=== PATIENT | female | born 1980 | race Caucasian/White ===

== ENCOUNTER → 2023-09-06 | Emergency (ER) | payer OTHER, SELFPAY ==
[~2023-09-06] MED LIST: CEFTRIAXONE 1000 MG/VIAL ONE; HYDROMORPHONE HCL 1 MG/ML INJ ONE; KETOROLAC 30 MG/ML INJ ONE; LIDOCAINE 4% PATCH ONE; METHOCARBAMOL 1,000 MG/10 ML VIAL ONE; MORPHINE 4 MG/ML SYR ONE; NA CHLORIDE 0.9% 100 ML ONE; NA CHLORIDE 0.9% 50 ML ONE; ONDANSETRON 4 MG/2 ML VIAL ONE; dexAMETHasone 10 MG/ML VIAL ONE
[2023-09-06 17:01] LABS: Specific Gravity 1.014 (1.005-1.030)
[2023-09-06 17:22] LABS: Specific Gravity 1.014 (1.005-1.030); Urine Bacteria None Seen /HPF (<20); Urine Bilirubin NEGATIVE (Negative); Urine Blood Negative (Negative); Urine Clarity Turbid (Clear); Urine Color Light-Yellow (Yellow); Urine Glucose NEGATIVE (Negative); Urine Mucus Slight /HPF (None Seen); Urine Protein NEGATIVE (Negative); Urine RBC <5 /HPF (None Seen); Urine Urobilinogen Normal (Normal)
--- NOTE | 2023-09-06 18:12 | RAD REPORT ---
EXAM DESCRIPTION: CT - Spine Lumbar Wo Con - 09/06/2023 5:33 pm CLINICAL HISTORY: PAIN COMPARISON: No comparisons TECHNIQUE: Axial noncontrast CT imaging of the lumbar spine was performed with coronal and sagittal re-formatted images. All CT scans are performed using dose optimization technique as appropriate and may include automated exposure control or mA/KV adjustment according to patient size. FINDINGS: No acute lumbar spine fracture seen. No aggressive marrow pattern or malalignment. Paraspinal tissues are normal in thickness. No paraspinal abscess or hematoma seen. Intervertebral disc disease assessment is inherently limited by CT. Within these limitations, no high -grade canal stenosis suspected. Asymmetric disc herniation along the left central/subarticular dianna on at L5-S1, with corresponding asymmetric disc height loss and endplate remodeling. Findings contrib carmelo to asymmetric narrowing of the left lateral recess, as well as at least moderate left neural fora deon narrowing. Mild bilateral neural foraminal narrowing at L4-5 secondary to endplate remodeling a nd diffuse disc bulge worse on the right. IMPRESSION: No acute osseous abnormality. Multilevel degenerative changes of the lumbar spine as above, most pronounced at L5-S1. Please correl ate clinically and consider additional evaluation by dedicated lumbar spine MRI on an outpatient basi s if there is concern for impingement of the neural structures.
--- NOTE | 2023-09-06 18:21 | RAD REPORT ---
EXAM DESCRIPTION: CT - Pelvis Wo Cont - 09/06/2023 5:34 pm CLINICAL HISTORY: PAIN COMPARISON: No comparisons TECHNIQUE: Thin cut axial CT imaging of the pelvis was performed without IV contrast. Multiplanar re formats were generated and reviewed. All CT scans are performed using dose optimization technique as appropriate and may include automated exposure control or mA/KV adjustment according to patient size. FINDINGS: No suspicious findings in the lung bases. No dilated bowel loops or bowel wall thickening. No free air, free fluid or inflammatory stranding. N o hernia, mass or bulky lymphadenopathy. The urinary bladder is without significant finding. No suspicious bony findings. Marginally calcified soft tissue lesions along the gluteal regions bilaterally, could relate to injec tion granuloma is or sequelae of prior trauma. Diastasis recti and small fat containing umbilical hernia. IMPRESSION: No suspicious bony finding started pelvis. Incidental findings as above.
--- NOTE | 2023-09-06 19:11 | EDPHYS ---
Physician Documentation [facility] Name: Porsha Hunt Age: 43 yrs Sex: Female : 1980 Arrival Date: 09/06/2023 Time: 13:42 Bed DX1 Private MD: ED Physician Josse Us HPI: 09/06 14:58 This 43 yrs old Female presents to ER via Wheelchair with complaints of Low Back Pain, cp Hip Pain - right, Leg Pain - right. 14:58 The patient presents with pain worsening of chronic low back pain. cp 14:58 The pain radiates to the right hip and right leg. The problem was sustained reports cp long drive yesterday that she believes made low back pain worse today. Associated signs and symptoms: Pertinent negatives: abdominal pain, constipation, fever, incontinence, numbness, urinary retention, weakness. Severity of symptoms: in the emergency department the symptoms are unchanged, despite home interventions. Patient reports surgical history of lumbar surgery. 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 - Social history:: Smoking status: Patient denies any tobacco usage or history of. ROS: 15:05 Constitutional: Negative for body aches, chills, fever, poor PO intake, cp 15:05 Cardiovascular: Negative for chest pain, cp 15:05 Respiratory: Negative for cough, shortness of breath, wheezing, 15:05 Abdomen/GI: Negative for abdominal pain, vomiting, diarrhea, constipation, bowel incontinence, 15:05 Back: Positive for decreased range of motion, pain at rest, pain with movement, of the low back, Negative for 15:05 : Negative for burning with urination, difficulty urinating, bladder incontinence, 15:05 Neuro: Negative for altered mental status, dizziness, headache, numbness, weakness, 15:05 All other systems are negative, cp Exam: 15:10 Constitutional: The patient appears in no acute distress, alert, awake, non-toxic, well cp developed, well nourished, obese, in obvious pain, uncomfortable, 15:10 Head/Face: Normocephalic, atraumatic. cp 15:10 Neck: ROM/movement: is normal, is supple, without pain, no range of motions limitations, 15:10 Chest/axilla: Inspection: normal, 15:10 Cardiovascular: Rate: tachycardic, Rhythm: regular, Edema: is not appreciated, JVD: is not appreciated, 15:10 Respiratory: the patient does not display signs of respiratory distress, Respirations: normal, no use of accessory muscles, no retractions, labored breathing, is not present, Breath sounds: are clear throughout, no decreased breath sounds, no stridor, no wheezing, 15:10 Abdomen/GI: Inspection: abdomen appears normal, Palpation: abdomen is soft and non-tender, in all quadrants, 15:10 Back: pain, that is severe, of the low back area and mid back area, ROM is painful, with all movement, 15:10 Neuro: Motor: moves all fours, strength is normal, Sensation: is normal, Vital Signs: 13:55 BP 133 / 102; Pulse 105; Resp 18; Temp 98.2; Pulse Ox 100% on R/A; Weight 104.33 kg; db Height 5 ft. 8 in. ; 16:42 BP 137 / 77; Pulse 76; Resp 16; Pulse Ox 97% on R/A; iw 13:55 Body Mass Index 34.97 (104.33 kg, 172.72 cm) db MDM: 14:30 Patient medically screened. cp 18:00 Differential diagnosis: sciatica, Herniated disc UTI, kidney stone, cauda equina, cp spinal stenosis. 19:10 Data reviewed: vital signs, nurses notes, lab test result(s), radiologic studies, CT cp scan. 19:10 I considered the following discharge prescriptions or medication management in the emergency department Medications were administered in the Emergency Department. See MAR. Counseling: I had a detailed discussion with the patient and/or guardian regarding the historical points, exam findings, and any diagnostic results supporting the discharge/admit diagnosis, radiology results, the need for outpatient follow up, a family practitioner, to return to the emergency department if symptoms worsen or persist or if there are any questions or concerns that arise at home. Response to treatment: the patient's symptoms have markedly improved after treatment, and as a result, I will discharge patient. 09/06 14:58 Order name: Urinalysis W/Microscopic; Complete Time: 18:48 cp 09/06 18:48 Interpretation: Normal except: [facility] Turbid; UESTR 75; UWBC 10-20. cp 09/06 14:58 Order name: PREGU; Complete Time: 18:48 cp 09/06 17:27 Order name: Urine Culture EDMS 09/06 16:34 Order name: CT Lumbar Spine Wo Con; Complete Time: 18:48 cp 09/06 18:49 Interpretation: Report reviewed. cp 09/06 16:34 Order name: CT Pelvis wo Cont; Complete Time: 18:48 cp 09/06 14:58 Order name: IV; Complete Time: 16:34 cp Administered Medications: 16:32 Drug: Ketorolac IVP 15 mg IVP once Route: IVP; Site: right antecubital; iw 16:33 Drug: Decadron - Dexamethasone IVP 10 mg IVP once Route: IVP; Site: right antecubital; iw 16:33 Drug: Methocarbamol IVPB 1 grams IVPB once over 1 hrs; (mix in NS 100 mL) Route: IVPB; iw Infused Over: 1 hrs; Site: right antecubital; 16:33 Drug: morphine IVP or IV 4 mg IVP once over 4 mins Route: IVP; Infused Over: 4 mins; iw Site: right antecubital; 16:41 Drug: Ondansetron IVP 4 mg IVP once; over 2 minutes Route: IVP; Site: right antecubital;iw 19:06 Drug: Rocephin IV 1 grams IV at calculated rate once; Given slow IV push per pharmacy cm10 instructions Route: IV; Rate: calculated rate; Site: right antecubital; 19:09 CANCELLED (Physician Discretion): [id number] mg-325 mg 1 tabs PO once cp 19:54 Drug: Lidoderm Topical Patch 5 % (700 mg/patch) 1 patches Topical once; leave on for 12 as6 hours; cover most painful area; may cut into smaller pieces Route: Topical; Site: affected area; 19:54 Drug: HYDROmorphone IVP 1 mg IVP once Route: IVP; Site: right antecubital; as6 Disposition: 09/07 07:06 Co-signature as Attending Physician, Josse Us MD I reviewed the patient's care rt provided by the Advanced Practice Provider and agree with the diagnosis and treatment plan. Disposition Summary: 09/06/23 19:11 Discharge Ordered Notes: Location: Home cp Problem: new cp Symptoms: have improved cp Condition: Stable cp Diagnosis - Intervertebral disc disorders with radiculopathy, lumbar region cp - Low back pain cp Followup: cp - With: Private Physician - When: 2 - 3 days - Reason: Recheck today's complaints Discharge Instructions: - Discharge Summary Sheet cp - Acute Back Pain, Adult cp - Herniated Disk cp - Lumbosacral Radiculopathy cp - Heat Therapy cp - Back Exercises cp Forms: - Medication Reconciliation Form cp - Thank You Letter cp - Antibiotic Education cp - Prescription Opioid Use cp - Patient Portal Instructions cp - Leadership Thank You Letter cp Prescriptions: - acetaminophen-codeine 300-30 mg Oral tablet - take 2 tablet ORAL route every 8 hours; 16 tablet; Refills: 0, Product cp Selection Permitted - Diclofenac Sodium 75 mg Oral Tablet Sustained Release - take 1 tablet ORAL route 2 times per day; 30 tablet; Refills: 0, Product cp Selection Permitted - Medrol (Johnson) 4 mg Oral Tablets, Dose Pack - take 1 tablet ORAL route as directed - follow package instructions; 1 packet; cp Refills: 0, Product Selection Permitted - orphenadrine citrate 100 mg Oral Tablet Sustained Release - take 1 tablet ORAL route 2 times per day As needed; 20 tablet; Refills: 0, cp Product Selection Permitted Signatures: Dispatcher [employer] Sommer Carpio RN RN iw Page, Corey, PA PA cp Benjamin Ram RN RN as6 Sandy Martinez RN RN db Josse Us MD MD rt Qi Berger RN RN cm10 Corrections: (The following items were deleted from the chart) 09/06 19:09 19:03 HYDROcodone-acetaminophen PO 10 mg-325 mg 1 tabs PO once ordered. cp cp
--- NOTE | 2023-09-06 19:11 | ER ---
Nurse's Notes [facility] Name: Porsha Hunt Age: 43 yrs Sex: Female : 1980 Arrival Date: 09/06/2023 Time: 13:42 Bed DX1 Private MD: Diagnosis: Intervertebral disc disorders with radiculopathy, lumbar region;Low back pain Presentation: 09/06 13:55 Chief complaint: Patient states: RIGHT LEG PAIN AND BACK PAIN NOW HAS INCREASED PAIN db TODAY. STATES FEELS LIKE WAS IN CAR TOO LONG YESTERDAY. DENIES RECENT INJURY. HX OF BACK SURGERY. Coronavirus screen: Vaccine status: Patient reports being unvaccinated. Client denies travel out of the [place] in the last 14 days. At this time, the client does not indicate any symptoms associated with coronavirus-19. Ebola Screen: Patient negative for fever greater than or equal to 101.5 degrees Fahrenheit, and additional compatible Ebola Virus Disease symptoms Patient denies exposure to infectious person. Patient denies travel to an Ebola-affected area in the 21 days before illness onset. No symptoms or risks identified at this time. Initial Sepsis Screen: Does the patient meet any 2 criteria? No. Patient's initial sepsis screen is negative. Does the patient have a suspected source of infection? No. Patient's initial sepsis screen is negative. Risk Assessment: Do you want to hurt yourself or someone else? Patient reports no desire to harm self or others. Onset of symptoms was September 06, 2023. 13:55 Method Of Arrival: Wheelchair db 13:55 Acuity: JONES 4 db Triage Assessment: 13:57 General: Appears in no apparent distress. uncomfortable, Behavior is calm, cooperative. db Pain: Complains of pain in right leg. Neuro: Level of Consciousness is awake, alert, obeys commands, Oriented to person, place, time, situation. Musculoskeletal: Circulation, motion, and sensation intact. Capillary refill Range of motion: intact in all extremities. 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 - Social history:: Smoking status: Patient denies any tobacco usage or history of. Screenin:05 [facility] ED Fall Risk Assessment (Adult) History of falling in the last 3 months, jb4 including since admission No falls in past 3 months (0 pts) Confusion or Disorientation No (0 pts). Abuse screen: Denies threats or abuse. Nutritional screening: No deficits noted. Tuberculosis screening: No symptoms or risk factors identified. Assessment: 16:45 Reassessment: Patient appears in no apparent distress at this time. Patient and/or iw family updated on plan of care and expected duration. Pain level reassessed. Patient is alert, oriented x 3, equal unlabored respirations, skin warm/dry/pink. 20:05 Reassessment: Patient appears in no apparent distress at this time. Patient and/or jb4 family updated on plan of care and expected duration. Pain level reassessed. Patient is alert, oriented x 3, equal unlabored respirations, skin warm/dry/pink. Vital Signs: 13:55 BP 133 / 102; Pulse 105; Resp 18; Temp 98.2; Pulse Ox 100% on R/A; Weight 104.33 kg; db Height 5 ft. 8 in. ; 16:42 BP 137 / 77; Pulse 76; Resp 16; Pulse Ox 97% on R/A; iw 13:55 Body Mass Index 34.97 (104.33 kg, 172.72 cm) db ED Course: 13:48 Patient arrived in ED. im 13:57 Triage completed. db 13:58 Arm band placed on Patient placed in an exam room. db 14:30 Tony Han PA is PHCP. cp 14:30 Josse Us MD is Attending Physician. cp 16:41 Sommer Mack, KENNY is Primary Nurse. iw 17:34 CT Lumbar Spine Wo Con In Process Unspecified. EDMS 17:34 CT Pelvis wo Cont In Process Unspecified. EDMS 20:05 Patient has correct armband on for positive identification. Allergy band placed. Call jb4 light in reach. 20:05 No provider procedures requiring assistance completed. IV discontinued, intact, jb4 bleeding controlled, No redness/swelling at site. Pressure dressing applied. Administered Medications: 16:32 Drug: Ketorolac IVP 15 mg IVP once Route: IVP; Site: right antecubital; iw 16:33 Drug: Decadron - Dexamethasone IVP 10 mg IVP once Route: IVP; Site: right antecubital; iw 16:33 Drug: Methocarbamol IVPB 1 grams IVPB once over 1 hrs; (mix in NS 100 mL) Route: IVPB; iw Infused Over: 1 hrs; Site: right antecubital; 16:33 Drug: morphine IVP or IV 4 mg IVP once over 4 mins Route: IVP; Infused Over: 4 mins; iw Site: right antecubital; 16:41 Drug: Ondansetron IVP 4 mg IVP once; over 2 minutes Route: IVP; Site: right antecubital;iw 19:06 Drug: Rocephin IV 1 grams IV at calculated rate once; Given slow IV push per pharmacy cm10 instructions Route: IV; Rate: calculated rate; Site: right antecubital; 19:09 CANCELLED (Physician Discretion): [id number] mg-325 mg 1 tabs PO once cp 19:54 Drug: Lidoderm Topical Patch 5 % (700 mg/patch) 1 patches Topical once; leave on for 12 as6 hours; cover most painful area; may cut into smaller pieces Route: Topical; Site: affected area; 19:54 Drug: HYDROmorphone IVP 1 mg IVP once Route: IVP; Site: right antecubital; as6 Outcome: 19:11 Discharge ordered by . cp 20:05 Discharged to home ambulatory, jb4 20:05 Condition: stable 20:05 Discharge instructions given to patient, Instructed on discharge instructions, follow up and referral plans. medication usage, Demonstrated understanding of instructions, follow-up care, medications, Prescriptions given X 4, 20:06 Patient left the ED. jb4 Signatures: Dispatcher [employer] EDSommer Rees RN RN iw Tony Han PA PA cp Bryson, James, RN RN jb4 Benjamin Ram RN RN as6 Sandy Martinez RN RN db Mendoza, Itzel im Martinez, Clarissa, RN RN cm10
[2023-09-06 20:36] VITALS: BP 137/77; TEMP 98.2; O2SAT 97
== END ==
LOC: ER 13:42
DX: M51.16 Intervertebral disc disorders with radiculopathy, lumbar region (principal)
CPT/HCPCS: 72131; 72192; 81001; 81025; 87086; 87088; 96374; 96375; 99284; J0696; J1100; J1170; J2001; J2405; J2800

== ENCOUNTER 2024-03-02 08:48 | Emergency (ER) | payer SELFPAY ==
--- NOTE | 2024-03-02 09:29 | RAD REPORT ---
EXAM DESCRIPTION: CT - Head Brain Wo Cont - 03/02/2024 9:24 am CLINICAL HISTORY: CONFUSED Headache, drowsiness COMPARISON: Head Brain Wo Cont dated 05/12/2016 TECHNIQUE: All CT scans are performed using dose optimization technique as appropriate and may inclu de automated exposure control or mA/KV adjustment according to patient size. FINDINGS: No intracranial hemorrhage, hydrocephalus or extra-axial fluid collection.No areas of brai n edema or evidence of midline shift. The paranasal sinuses and mastoids are clear. The calvarium is intact. IMPRESSION: No acute intracranial abnormality.
[2024-03-02] MEDS ORDERED: NA CHLORIDE 0.9% 1,000 ML ONE (09:46)
[2024-03-02 10:16] LABS: Absolute Eosinophils 0.1 K/uL (0-0.5); Absolute Lymphocytes (CBC) 1.7 K/uL (0.7-4.9); Absolute Monocytes 0.6 K/uL (0.1-1.3); Absolute Neutrophil 6.6 K/uL (1.8-8.0); Basophils % 0.3 % (0-1.3); Eosinophils % 1.4 % (0-4.4); Hematocrit 39.8 % (36.0-45.0); Hemoglobin 13.3 g/dL (12.0-15.0); Lymphocytes % 18.6 % (15.3-44.8); MCHC 33.5 g/dL (32.0-36.0); MCV 92.6 fL (80-100); MPV 8.4 fL (7.6-11.3); Monocytes % 6.7 % (3.3-12.3); Platelets 269 thou/uL (152-406)
[2024-03-02 10:36] LABS: ALT/SGPT 23 U/L (13-56); AST/SGOT 12 U/L (15-37); Albumin 3.4 g/dL (3.4-5.0); Albumin/Globulin Ratio 0.9 (1.1-1.8); Alkaline Phosphatase 81 U/L (45-117); Anion Gap 6.1 mEq/L (5.0-15.0); BUN Blood Urea Nitrogen 8 mg/dL (7-18); Bicarbonate 29 mEq/L (21-32); Bilirubin Total 0.5 mg/dL (0.2-1.0); Globulin 3.6 g/dL (2.3-3.5); Glomerular Filtration Rate 74 ml/min (=/>90); Glucose Level 89 mg/dL (74-106); Potassium 4.1 mEq/L (3.5-5.1); Sodium Level 137 mEq/L (136-145)
[2024-03-02 10:41] LABS: Bilirubin Direct < 0.2 mg/dL (0-0.2); Bilirubin Indirect, Calculated 0.3 mg/dL (0.2-0.8); Troponin High Sensitivity < 3.0 pg/mL (<58.9)
[2024-03-02] MEDS ORDERED: ONDANSETRON 4 MG/2 ML VIAL ONE (11:28)
[2024-03-02 11:55] VITALS: BP 96/65; TEMP 98.2; O2SAT 97
--- NOTE | 2024-03-02 15:05 | EDPHYS ---
Physician Documentation [facility] Name: Porsha Hunt Age: 43 yrs Sex: Female : 1980 Arrival Date: 03/02/2024 Time: 08:48 Bed 7 Private MD: ED Physician Som Severino HPI: 03/02 09:22 This 43 yrs old Female presents to ER via EMS with complaints of confusion. sp3 09:22 43-year-old female with history of migraines, chronic back pain presents via EMS after sp3 her son called 911 secondary to her mom being confused. Patient states she took gabapentin and "tizadan" which she states is a pain medication. She does not have the names of her medications with her. She has taken these together in the past but states that she has had no side effects. Her symptoms were confusion, drowsiness and general disorientation which have now all resolved. She states she has a mild headache currently but otherwise no other symptoms. Her chronic low back pain is still present as well. She denies fever, ongoing disorientation, slurred speech, memory loss, facial muscle weakness, body weakness or numbness, syncope, near syncope, chest pain, shortness of breath, abdominal pain, vomiting, diarrhea, rash, bleeding, or any other signs or symptoms on ROS at this time. She does endorse nausea only.. Historical: - Allergies: 09:17 Bactrim; ss 09:17 Benadryl; ss 09:17 Latex; ss - PMHx: 09:17 Migraines; ss 09:18 Chronic back pain; ss - Immunization history:: Adult Immunizations up to date. - Infectious Disease History:: Denies. - Social history:: Smoking status: Patient denies any tobacco usage or history of. ROS: 09:23 Constitutional: Negative for fever, chills, and weight loss, Eyes: Negative for injury, sp3 pain, redness, and discharge, Neck: Negative for injury, pain, and swelling, Cardiovascular: Negative for chest pain, palpitations, and edema, Respiratory: Negative for shortness of breath, cough, wheezing, and pleuritic chest pain, Abdomen/GI: Negative for abdominal pain, nausea, vomiting, diarrhea, and constipation, Back: Negative for injury and pain, Skin: Negative for injury, rash, and discoloration, Psych: Negative for depression, anxiety, suicide ideation, homicidal ideation, and hallucinations, Allergy/Immunology: Negative for hives, rash, and allergies, Endocrine: Negative for neck swelling, polydipsia, polyuria, polyphagia, and marked weight changes, Hematologic/Lymphatic: Negative for swollen nodes, abnormal bleeding, and unusual bruising, 09:23 All other systems are negative, Exam: 09:24 Constitutional: This is a well developed, well nourished patient who is awake, alert, sp3 and in no acute distress. Head/Face: Normocephalic, atraumatic. Eyes: Pupils equal round and reactive to light, extra-ocular motions intact. Lids and lashes normal. Conjunctiva and sclera are non-icteric and not injected. Cornea within normal limits. Periorbital areas with no swelling, redness, or edema. ENT: Nares patent. No nasal discharge, no septal abnormalities noted. External auditory canals are clear. Oropharynx with no redness, swelling, or masses, exudates, or evidence of obstruction, uvula midline. Mucous membranes moist. Neck: Trachea midline, no thyromegaly or masses palpated, and no cervical lymphadenopathy. Supple, full range of motion without nuchal rigidity, or vertebral point tenderness. No Meningismus. Chest/axilla: Normal chest wall appearance and motion. Nontender with no deformity. No lesions are appreciated. Cardiovascular: Regular rate and rhythm with a normal S1 and S2. No gallops, murmurs, or rubs. Normal PMI, no JVD. No pulse deficits. Respiratory: Lungs have equal breath sounds bilaterally, clear to auscultation and percussion. No rales, rhonchi or wheezes noted. No increased work of breathing, no retractions or nasal flaring. Abdomen/GI: Soft, non-tender, with normal bowel sounds. No distension or tympany. No guarding or rebound. No evidence of tenderness throughout. Back: No spinal tenderness. No costovertebral tenderness. Full range of motion. Skin: Warm, dry with normal turgor. Normal color with no rashes, no lesions, and no evidence of cellulitis. MS/ Extremity: Pulses equal, no cyanosis. Neurovascular intact. Full, normal range of motion. Neuro: Awake and alert, GCS 15, oriented to person, place, time, and situation. Cranial nerves II-XII grossly intact. Motor strength 5/5 in all extremities. Sensory grossly intact. Cerebellar exam normal. Normal gait. Psych: Awake, alert, with orientation to person, place and time. Behavior, mood, and affect are within normal limits. Vital Signs: 09:14 BP 96 / 65; Pulse 74; Resp 14; Temp 98.2(TE); Pulse Ox 97% on R/A; Weight 104.33 kg; ss Height 5 ft. 8 in. ; 10:09 BP 110 / 74; Pulse 71; Resp 16; Pulse Ox 99% on R/A; rs5 11:20 BP 115 / 77; Pulse 75; Resp 17; Pulse Ox 99% on R/A; rs5 09:14 Body Mass Index 34.97 (104.33 kg, 172.72 cm) ss MDM: 09:15 Patient medically screened. sp3 09:24 Data reviewed: vital signs, nurses notes, lab test result(s), EKG, radiologic studies. sp3 ED course: 43-year-old female with PMH above now with confusion that is resolved. Possibilities in differential diagnosis include medication interaction, medication overdose, electrolyte abnormality and to a lesser degree intracranial pathology including mass, hemorrhage, bleed, infection though I have clinically ruled out all of this. Will obtain CT scan of the head, laboratory values, test, EKG and also administer normal saline 1 L given patient's nausea and stated feelings of "dehydration". Vital signs are normal and patient is back to her baseline at this time. She is asking for discharge however she does agree to workup prior to discharge to ensure no other significant pathology is occurring. If workup is negative we will safely discharged home.. 10:51 ED course: Full workup is negative and patient is continues to be on her baseline sp3 status. Will safely discharge home at this time.. 03/02 09:20 Order name: Basic Metabolic Panel; Complete Time: 10:51 sp3 03/02 09:20 Order name: CBC with Diff; Complete Time: 10:31 sp3 03/02 09:20 Order name: Hepatic Function; Complete Time: 10:51 sp3 03/02 09:20 Order name: Magnesium; Complete Time: 10:51 sp3 03/02 09:20 Order name: Troponin High Sensitivity; Complete Time: 10:51 sp3 06/19 09:20 Order name: Test, Serum; Complete Time: 10:51 sp3 03/02 09:19 Order name: CT Head Brain wo Cont; Complete Time: 09:30 sp3 03/02 09:20 Order name: Cardiac monitoring; Complete Time: 14:44 sp3 03/02 09:20 Order name: EKG - Nurse/Tech; Complete Time: 14:45 sp3 03/02 09:20 Order name: IV Saline Lock; Complete Time: 14:45 sp3 03/02 09:20 Order name: Labs collected and sent; Complete Time: 14:45 sp3 03/02 09:20 Order name: NPO; Complete Time: 14:45 sp3 03/02 09:20 Order name: O2 Sat Monitoring; Complete Time: 14:45 sp3 Administered Medications: 09:25 Drug: NS 0.9% IV 1000 ml IV at 1 bolus Per protocol; 1000 mL bolus Route: IV; Rate: 1 rs5 bolus; Site: left antecubital; 10:00 Follow up: Response: No adverse reaction rs5 10:17 Follow up: IV Status: Completed infusion; IV Intake: 999ml rs5 10:00 Drug: Ondansetron IVP 4 mg IVP once; over 2 minutes Route: IVP; Site: left antecubital; rs5 10:20 Follow up: Response: No adverse reaction; Nausea is decreased rs5 Disposition Summary: 03/02/24 10:52 Discharge Ordered Notes: Location: Home sp3 Condition: Stable sp3 Diagnosis - Confusion, altered mental status resolved. sp3 Followup: sp3 - With: Private Physician - When: Upon discharge from the Emergency Department - Reason: Continuance of care Discharge Instructions: - Discharge Summary Sheet sp3 - Confusion sp3 Forms: - Medication Reconciliation Form sp3 - Antibiotic Education sp3 - Prescription Opioid Use sp3 - Patient Portal Instructions sp3 - Leadership Thank You Letter sp3 Signatures: Dispatcher [employer] Teodora Barnes RN RN ss Som Severino MD MD sp3 Roberto Genao RN RN rs5
--- NOTE | 2024-03-02 15:05 | ER ---
Nurse's Notes [facility] Name: Porsha Hunt Age: 43 yrs Sex: Female : 1980 Arrival Date: 03/02/2024 Time: 08:48 Bed 7 Private MD: Diagnosis: Confusion, altered mental status resolved. Presentation: 03/02 09:14 Chief complaint: Patient states: Took prescribed pain medication this morning and son ss reports shortly after patient became confused. EMS reports upon arrival to patients home, she was A\\T\\O x 3, vomited x1. Coronavirus screen: Client denies travel out of the [place] in the last 14 days. Ebola Screen: Patient denies exposure to infectious person. Patient denies travel to an Ebola-affected area in the 21 days before illness onset. Initial Sepsis Screen: Does the patient meet any 2 criteria? No. Patient's initial sepsis screen is negative. Does the patient have a suspected source of infection? No. Patient's initial sepsis screen is negative. Risk Assessment: Do you want to hurt yourself or someone else? Patient reports no desire to harm self or others. Onset of symptoms was March 02, 2024. 09:14 Method Of Arrival: EMS: [facility] 09:14 Acuity: JONES 3 ss Triage Assessment: 09:15 General: Appears in no apparent distress. comfortable, Behavior is calm, cooperative. rs5 09:15 Pain: Denies pain. rs5 Historical: - Allergies: 09:17 Bactrim; ss 09:17 Benadryl; ss 09:17 Latex; ss - PMHx: 09:17 Migraines; ss 09:18 Chronic back pain; ss - Immunization history:: Adult Immunizations up to date. - Infectious Disease History:: Denies. - Social history:: Smoking status: Patient denies any tobacco usage or history of. Screenin:15 [facility] ED Fall Risk Assessment (Adult) History of falling in the last 3 months, rs5 including since admission No falls in past 3 months (0 pts) Confusion or Disorientation Yes (5 pts) Intoxicated or Sedated No (0 pts) Impaired Gait Yes (1 pt) Mobility Assist Device Used No (0 pt) Altered Elimination No (0 pt) Score/Fall Risk Level 3 or more points = High Risk Maintained a safe environment, Educated pt \\T\\ family on fall prevention, incl call for assistance when getting out of bed. Abuse screen: Denies threats or abuse. Nutritional screening: No deficits noted. Tuberculosis screening: No symptoms or risk factors identified. Assessment: 09:15 General: Appears in no apparent distress. comfortable, Behavior is calm, cooperative. rs5 09:15 Pain: Complains of pain in lower back Pain currently is 3 out of 10 on a pain scale. rs5 Quality of pain is described as aching, Pain began 1 day ago. Neuro: Level of Consciousness is awake, alert, obeys commands, Oriented to person, place, situation, Boiler Tube Blower are equal bilaterally Moves all extremities. Gait is steady. Cardiovascular: Patient's skin is warm and dry. Rhythm is regular. Respiratory: Airway is patent Respiratory effort is even, unlabored, Respiratory pattern is regular, symmetrical. GI: Abdomen is round non-distended. : No signs and/or symptoms were reported regarding the genitourinary system. EENT: No signs and/or symptoms were reported regarding the EENT system. Derm: Skin is intact, Skin is pink, warm \\T\\ dry. Musculoskeletal: Range of motion: intact in all extremities. 10:11 Neuro: Level of Consciousness is awake, alert, obeys commands, Oriented to person, rs5 place, time, situation, Boiler Tube Blower are equal bilaterally Moves all extremities. 10:11 Reassessment: Patient and/or family updated on plan of care and expected duration. Pain rs5 level reassessed. Patient is alert, oriented x 3, equal unlabored respirations, skin warm/dry/pink. 10:50 Reassessment: Patient and/or family updated on plan of care and expected duration. Pain rs5 level reassessed. Patient is alert, oriented x 3, equal unlabored respirations, skin warm/dry/pink. Pain: Complains of pain in lower back Pain currently is 9 out of 10 on a pain scale. Quality of pain is described as aching, Is continuous. 10:55 Reassessment: pt up for discharge, provider notified pt is experiencing pain. . rs5 11:05 Reassessment: pt states "MY BACK HURTS!!! GET THE DOCTOR, GET THE DOCTOR". rs5 11:10 Reassessment: provider at bedside. rs5 11:20 Reassessment: Provider remains at bedside. rs5 11:25 Reassessment: Patient and/or family updated on plan of care and expected duration. Pain rs5 level reassessed. Patient is alert, oriented x 3, equal unlabored respirations, skin warm/dry/pink. Vital Signs: 09:14 BP 96 / 65; Pulse 74; Resp 14; Temp 98.2(TE); Pulse Ox 97% on R/A; Weight 104.33 kg; ss Height 5 ft. 8 in. ; 10:09 BP 110 / 74; Pulse 71; Resp 16; Pulse Ox 99% on R/A; rs5 11:20 BP 115 / 77; Pulse 75; Resp 17; Pulse Ox 99% on R/A; rs5 09:14 Body Mass Index 34.97 (104.33 kg, 172.72 cm) ED Course: 09:13 Patient arrived in ED. ss 09:14 Som Severino MD is Attending Physician. sp3 09:15 Patient has correct armband on for positive identification. Placed in gown. Bed in low rs5 position. Call light in reach. Side rails up X2. 09:15 No provider procedures requiring assistance completed. rs5 09:17 Triage completed. ss 09:18 Arm band placed on left wrist. ss 09:25 CT Head Brain wo Cont In Process Unspecified. EDMS 09:41 Roberto Genao, RN is Primary Nurse. rs5 11:25 IV discontinued, intact, bleeding controlled, No redness/swelling at site. Pressure rs5 dressing applied. Administered Medications: 09:25 Drug: NS 0.9% IV 1000 ml IV at 1 bolus Per protocol; 1000 mL bolus Route: IV; Rate: 1 rs5 bolus; Site: left antecubital; 10:00 Follow up: Response: No adverse reaction rs5 10:17 Follow up: IV Status: Completed infusion; IV Intake: 999ml rs5 10:00 Drug: Ondansetron IVP 4 mg IVP once; over 2 minutes Route: IVP; Site: left antecubital; rs5 10:20 Follow up: Response: No adverse reaction; Nausea is decreased rs5 Medication: 09:25 VIS not applicable for this client. rs5 Intake: 10:17 IV: 999ml; Total: 999ml. rs5 Outcome: 10:52 Discharge ordered by . sp3 11:25 Discharged to home via wheelchair, rs5 11:25 Condition: stable 11:25 Discharge instructions given to patient, family, Instructed on discharge instructions, follow up and referral plans. Demonstrated understanding of instructions, follow-up care, 11:27 Patient left the ED. rs5 Signatures: Dispatcher [employer] Teodora Barnes, RN RN ss Som Severino MD MD sp3 Roberto Genao RN RN rs5 Corrections: (The following items were deleted from the chart) 14:43 10:55 Reassessment: provider notified pt is experiencing pain. rs5 rs5 14:43 11:05 Reassessment: pt states "MY BACK HURTS!!! GET THE DOCTOR, GET THE DOCTOR. rs5 rs5
== END 2024-03-02 11:27 | disposition home or self-care (01) ==
LOC: ER 08:48
DX: R41.0 Disorientation, unspecified (principal); R11.0 Nausea
CPT/HCPCS: 36415; 70450; 80048; 80076; 83735; 84484; 84703; 85025; J2405; J7030